=== PATIENT | male | born 1975 | race Caucasian/White ===

== ENCOUNTER 2022-11-06 05:57 | Day surgery (SDC) | payer BC ==
[2022-11-04 08:59] VITALS: BMI 32.1
[2022-11-06] MEDS ORDERED: Bupivacaine HCl 0.5%/Epinephrine 1:200,000/PF 30 ml Vial ONE (06:38)
[2022-11-06] MEDS ORDERED: Midazolam HCl 2 mg/2 ml Vial ONE (07:09)
[2022-11-06] MEDS ORDERED: Fentanyl 100 MCG/2 ML VIAL ONE (07:09)
[2022-11-06] MEDS ORDERED: PROPOFOL 20 ML ONE (07:09)
[2022-11-06] MEDS ORDERED: Dexamethasone 4 mg/ml Vial ONE (07:09)
[2022-11-06] MEDS ORDERED: Rocuronium Bromide 10 MG/ML (10ML VIAL) ONE (07:09)
[2022-11-06] MEDS ORDERED: Ondansetron PF 4 MG/2 ML Vial ONE (07:09)
[2022-11-06] MEDS ORDERED: Esmolol 100 MG/10 ML VIAL ONE (07:09)
[2022-11-06] MEDS ORDERED: Clindamycin/D5W 600 mg/50 ml Premix Bag ONE (07:12)
[2022-11-06] MEDS ORDERED: ePHEDrine Sulfate 50 MG/10 ML VIAL ONE (07:54)
[2022-11-06] MEDS ORDERED: SUGAMMADEX SODIUM 200 MG/2 ML VIAL ONE (08:08)
[2022-11-06] MEDS ORDERED: Albuterol HFA (OR) 200 PUFF INH ONE (08:49)
[2022-11-06] MEDS ORDERED: diphenhydrAMINE 50 MG/ML VIAL ONE (08:58)
[2022-11-06] MEDS ORDERED: HYDROcodone/Acetaminophen 5/325 mg Tablet PO PRN (09:01)
[2022-11-06] MEDS ORDERED: Acetaminophen 325 MG TAB PO PRN (09:01)
[2022-11-06] MEDS ORDERED: Famotidine/PF 20 mg/2ml Vial ONE (09:03)
[2022-11-06] MEDS ORDERED: Furosemide 20 MG/2 ML VIAL ONE (10:16)
== END 2022-11-06 11:20 | disposition home or self-care (01) ==
LOC: CSHSDC 05:57
PROVIDERS: ATTEND Surgery
PROC: 0FT44ZZ Resection of Gallbladder, Percutaneous Endoscopic Approach (ICD-10-PCS; principal; 2022-11-06)
DX: K80.10 Calculus of gallbladder with chronic cholecystitis without obstruction (principal); Z79.899 Other long term (current) drug therapy; Z88.0 Allergy status to penicillin; Z91.018 Allergy to other foods
CPT/HCPCS: 71045; 88304; C1776; J1100; J1200; J1940; J2250; J2405; J2704; J3010; J3490; S0028